=== PATIENT | female | born 1965 | race Caucasian/White ===

== ENCOUNTER 2021-08-11 08:37 | Outpatient (CLI) | payer BC, SELFPAY | END 2021-08-11 08:38 | disposition home or self-care (01) | LOC: CHSOUTPT 08:43 | PROVIDERS: PCP Family Medicine; Visit Provider Specialist | DX: C44.519 Basal cell carcinoma of skin of other part of trunk (principal) | CPT/HCPCS: 88305 ==

== ENCOUNTER 2022-02-09 09:50 | Outpatient (CLI) | payer BC, SELFPAY | END 2022-02-09 09:51 | disposition home or self-care (01) | LOC: CHSOUTPT 09:55 | PROVIDERS: PCP Family Medicine; Visit Provider Specialist | DX: C44.01 Basal cell carcinoma of skin of lip (principal) | CPT/HCPCS: 88305 ==

== ENCOUNTER 2024-09-18 14:19 | Emergency (ER) | payer OTHER, SELFPAY ==
[2024-09-18 14:28] VITALS: BP 132/82; PULSE 85; RESP 16; TEMP 36.7; O2SAT 100
--- NOTE | 2024-09-18 14:33 | ED_ITS ---
HPI - Ear Problem General Chief complaint: Ear Stated complaint: EAR CLOGGED Time Seen by Provider: 09/18/24 15:02 Source: patient, RN notes reviewed and old records reviewed Mode of arrival: ambulatory Limitations: no limitations History of Present Illness HPI Narrative: 58-year-old female presents to the [facility] with right ear clogged for 3 weeks. States that she was on a plane ride when this started. Has tried to pop it. Denies pain Related Data Home Medications ?Medication ?Instructions ?Recorded ?Confirmed ?Last Taken ?Type thyroid (pork) 130 mg tablet 130 mg PO DAILY 11/16/19 11/16/19 Unknown History Allergies Allergy/AdvReac Type Severity Reaction Status Date / Time No Known Allergies Allergy Unverified 09/18/24 14:39 Review of Systems Review of Systems: All systems reviewed & are unremarkable except as noted in HPI and below Constitutional: Constitutional: Reports no additional constitutional complaints ENT: Reports as per HPI and Denies otalgia ( clogged) Cardiovascular: Cardiovascular: Reports no additional cardiovascular complaints, Denies chest pain and Denies dyspnea Respiratory: Respiratory: Reports no additional respiratory complaints, Denies chest congestion, Denies cough and Denies dyspnea Musculoskeletal: Musculoskeletal: Reports no additional musculoskeletal complaints Integumentary/Breasts: Skin/Breast: Reports system reviewed and no additional complaints, except as docu PMFSH Past Medical History Medical History (Updated 09/18/24 @ 17:36 by Leah Artis APRN) Vitamin D deficiency Overactive bladder Hypothyroidism Finger fracture Surgical History Surgical History H/O bladder repair surgery History of appendectomy Family History Family History Father Family history of thyroid disease Family history of cataracts Family history of congestive heart failure Sibling Family history of thyroid disease Mother Acute myocardial infarction Social History Social History Smoking status: Never smoker Alcohol intake: current Alcohol use details: social Substance use: never Substance use type: does not use Living arrangements: with family Additional living arrangements comments: Occupation/Education: occupation 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 There is no relevant family history pertinent to the patient complaint. Exam Const: General: cooperative, healthy appearing, comfortable, no acute distress, well developed, alert and well nourished Nutritional Appearance: well nourished Orientation/consciousness: patient oriented x3 Limitations: no limitations HENMT: Head: normal to inspection Ears: TM abnormal bulging on the right, wth effusion purulent on the right and with loss of landmarks; not erythematous Mouth: Yes Normal oral and palatal mucosa present, Yes lip normal, Yes tongue normal and Yes moist mucous membranes Throat: posterior oropharynx normal, uvula midline and no uvular edema Eyes: General: appearance normal, both eyes and all related structures Alignment and Position: alignment normal Neck: Neck: normal visual inspection, full ROM, no lymphadenopathy and no meningeal signs Chest: Chest palpation & inspection: normal inspection of the chest Resp: Effort & Inspection: normal respiratory effort and able to speak in complete sentences Auscultation: clear to auscultation bilaterally, no crackles, no rales, no rhonchi and no wheezes Cardio: Rate: regular rate Skin: General skin exam: normal color and no rashes or lesions noted Neuro: General: patient oriented x3, gait normal, moves all extremities and no meningeal signs Cognition (Neuro): normal cognition Speech: normal speech Gait exam (Neuro): Normal gait present Extrem: General: normal to inspection, full ROM, capillary refill normal and normal gait Psych: Appearance: grossly normal and well kempt Mental Status: mental status grossly normal Speech and movement: Normal speech and movement present and Clear speech present Affect: normal affect Attitude: cooperative Course Course Level of Care: Express Care Visit Vital Signs Vital signs: Vital Signs Temperature 98.1 F 09/18/24 14:28 Pulse Rate 85 09/18/24 14:28 Respiratory Rate 16 09/18/24 14:28 Blood Pressure 132/82 09/18/24 14:28 Pulse Oximetry 100 09/18/24 14:28 Temperature 98.1 F 09/18/24 14:28 Pulse Rate 85 09/18/24 14:28 Respiratory Rate 16 09/18/24 14:28 Blood Pressure 132/82 09/18/24 14:28 Pulse Oximetry 100 09/18/24 14:28 Reviewed Medical Decision Making MDM Narrative Medical decision making narrative: Patient sitting comfortably in exam room. Nontoxic, vitals stable. Patient in no acute distress Patient presents for clogged ear without pain for 3 weeks. Thick white to yellow noted behind TM. No erythema noted patient appropriate for outpatient treatment with close follow-up. Already has an appointment with ENT established. Discharge instructions reviewed with patient, as well as provided in writing per nursing staff. The instructions also include specific and strict return/GO TO THE ER as well as f/u information. All questions have been answered, and the patient deny any further questions with discharge and discharge plan. Some parts of this dictation were generated by voice recognition software and may contain typographical and/or grammatical inaccuracies. Differential Diagnosis Differential Diagnosis: Otitis media, serous otitis, otitis externa, URI Medical Records Medical records reviewed: Yes I reviewed the external patient's medical records. Vital Signs Vital Signs: Vital Signs Temperature 98.1 F 09/18/24 14:28 Pulse Rate 85 09/18/24 14:28 Respiratory Rate 16 09/18/24 14:28 Blood Pressure 132/82 09/18/24 14:28 Pulse Oximetry 100 09/18/24 14:28 Temperature 98.1 F 09/18/24 14:28 Pulse Rate 85 09/18/24 14:28 Respiratory Rate 16 09/18/24 14:28 Blood Pressure 132/82 09/18/24 14:28 Pulse Oximetry 100 09/18/24 14:28 Reviewed Lab Data Lab results reviewed: Yes I reviewed the patient's lab results. Labs: Reviewed Critical Care Time Critical Care Time Critical Care Time: No Discharge Plan Discharge Clinical Impression: Otitis media Qualifiers: Otitis media type: suppurative Chronicity: acute Laterality: right Recurrence: not specified as recurrent Spontaneous tympanic membrane rupture: without spontaneous rupture Qualified Code(s): H66.001 - Acute suppurative otitis media without spontaneous rupture of ear drum, right ear Patient Disposition: Home, Self-Care Condition: Stable Instructions: Antibiotic Form, Ear Infection (ED) Additional Instructions: Use Flonase daily. take medications as prescribed follow-up with ENT as already scheduled follow-up with primary care provider for new or worsening symptoms go directly to the emergency room Patient Language: Bangladeshi Prescriptions: New amoxicillin 875 mg tablet 875 mg PO Q12H Qty: 20 0RF methylprednisolone [Medrol ([place])] 4 mg tablets,dose pack See Rx Instructions PO .COMPLEX Qty: 21 0RF Rx Instructions: orally per package directions No Action Nature-Throid 130 mg tablet 130 mg PO DAILY loratadine 10 mg capsule 10 mg PO DAILY Qty: 30 0RF fluticasone propionate [Flonase Allergy Relief] 50 mcg/actuation spray,suspension 1 spray NASAL DAILY Qty: 18.2 0RF Rx Instructions: administer into each nostril Follow-up/Referrals: PHYSICIAN,CATTLE BRANDER [Primary Care Provider] - Stand Alone Forms: Work/School Release IP Time of Disposition: 15:12
== END 2024-09-18 15:18 | disposition home or self-care (01) ==
PROVIDERS: Emergency Provider Nurse Practitioner
DX: H66.001 Acute suppurative otitis media without spontaneous rupture of ear drum, right ear (principal); E03.9 Hypothyroidism, unspecified
CPT/HCPCS: 99213; G0463

== ENCOUNTER 2025-07-31 18:11 | Emergency (ER) | payer OTHER, SELFPAY ==
[2025-07-31 18:25] VITALS: BP 142/92; PULSE 75; RESP 16; TEMP 36.4; O2SAT 100
[2025-07-31 18:33] LABS: EDSTREPNEGPOS1 Negative (Negative)
--- NOTE | 2025-07-31 18:49 | ED_ITS ---
HPI - URI/Sore Throat General Chief Complaint: Upper Respiratory Infection Stated Complaint: SORE THROAT Time Seen by Provider: 07/31/25 18:20 Source: patient and RN notes reviewed Mode of arrival: ambulatory Limitations: no limitations History of Present Illness HPI Narrative: 59-year-old female presents Express Care complaining of sore throat started today. Patient reports pain with swallowing. Patient denies any other upper respiratory symptoms, fevers, body aches, chills, nausea vomiting, difficulty breathing, difficulty swallowing, chest pain, shortness of breath, or any other symptoms. Patient says she was recently on a girls trip with her sister who tested positive for strep yesterday if she was exposed to is also coughing and hacking during the trip. Related Data Home Medications ?Medication ?Instructions ?Recorded ?Confirmed ?Last Taken ?Type thyroid (pork) 130 mg tablet 130 mg PO DAILY 11/16/19 11/16/19 Unknown History levothyroxine 125 mcg tablet mcg 07/31/25 Unknown His tory Allergies Allergy/AdvReac Type Severity Reaction Status Date / Time No Known Allergies Allergy Verified 07/31/25 18:33 Review of Systems Review of Systems: CONSTITUTIONAL: Denies fever, chills, or sweats. EYES: Denies visual changes, redness, or discharge. ENT: Denies rhinorrhea, congestion, dysphagia, or otalgia. Positive for sore throat. CARDIOVASCULAR: Denies chest pain, palpitations, or edema. RESPIRATORY: Denies cough or dyspnea. GASTROINTESTINAL: Denies abdominal pain, nausea, vomiting, or diarrhea. GENITOURINARY: Denies dysuria or hematuria. SKIN: Denies rash or itching. MUSCULOSKELETAL: Denies back pain, joint pain, or myalgia. NEUROLOGIC: Denies headache, numbness, or weakness. PSYCHIATRIC: Denies anxiety or depression. All other systems reviewed are negative, except as documented in HPI. [facility] Past Medical History Medical History Vitamin D deficiency Overactive bladder Hypothyroidism Finger fracture Surgical History Surgical History H/O bladder repair surgery History of appendectomy Family History Family History Father Family history of thyroid disease Family history of cataracts Family history of congestive heart failure Sibling Family history of thyroid disease Mother Acute myocardial infarction Social History Social History Smoking status: Never smoker Alcohol intake: current Alcohol use details: social Substance use: never Substance use type: does not use Living arrangements: with family Additional living arrangements comments: Occupation/Education: occupation 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 There is no relevant family history pertinent to the patient complaint. Exam Narrative: GENERAL: This is a well-nourished, well-developed adult, in no apparent distress. They are non ill-appearing, nontoxic appearing. HEAD: normocephalic, atraumatic. EYES: Sclera clear/white. Conjunctiva normal. Vision is grossly intact. Extraocular movements intact EARS: External ears normal, auditory canals clear and without drainage, TMs normal without perforation. Hearing grossly intact. NOSE: External nose normal with no obvious nasal discharge, nasal turbinates without redness, no rhinorrhea. THROAT: Mucous membranes moist, posterior pharynx erythematous red and patchy. Tonsils 2+ erythematous. No exudate. Uvula midline. NECK: Neck supple, mild cervical lymphadenopathy, no masses or thyromegaly. CARDIOVASCULAR: Regular rate and rhythm without murmurs, gallops, or rubs. RESPIRATORY: Clear to auscultation. Breath sounds equal bilaterally. No wheezes, rales, or rhonchi. SKIN: warm, Dry, intact with no suspicious lesions or rash, good texture and turgor. NEURO: awake, alert, and oriented to person, place and time. There were no obvious focal neurologic abnormalities. EXTREMITIES: No joint tenderness, effusion, or edema noted. BACK: Nontender without deformity. No CVA tenderness. Course Course Emergency Course: Portions of this record may have been created with voice recognition software Level of Care: Express Care Visit Vital Signs Vital signs: Vital Signs Temperature 97.6 F 07/31/25 18:25 Pulse Rate 75 07/31/25 18:25 Respiratory Rate 16 07/31/25 18:25 Blood Pressure 142/92 H 07/31/25 18:25 Pulse Oximetry 100 07/31/25 18:25 Temperature 97.6 F 07/31/25 18:25 Pulse Rate 75 07/31/25 18:25 Respiratory Rate 16 07/31/25 18:25 Blood Pressure 142/92 H 07/31/25 18:25 Pulse Oximetry 100 07/31/25 18:25 Reviewed MDM - URI/Sore Throat MDM Narrative Medical decision making narrative: Rapid strep negative. A throat culture is pending. There is clinical suspicion for strep pharyngitis. She has a known exposure. Through shared decision making discussed patient awaiting culture results are go ahead and start presumptive therapy for strep pharyngitis. She would like go and start antibiotics. Prescription amoxicillin sent to pharmacy. Patient also reporting her pain of her sore throat a 10/, will give her 1 time dose of dexamethasone. Discussed physical exam findings. Advised supportive measures and signs/symptoms to go to the ER. Pt is appropriate for outpt treatment and f/u. Differential Diagnosis Differential diagnosis: Likely upper respiratory infection, sinusitis, viral infection and pharyngitis Lab Data Attestation: I reviewed the patient's lab results. Labs: Lab Results 07/31/25 Range/Units 18:31 POC Grp A Strep Screen Negative (Negative) Critical Care Time Critical Care Time Critical Care Time: No Discharge Plan Discharge Clinical Impression: Pharyngitis Qualifiers: Pharyngitis/tonsillitis etiology: unspecified etiology Qualified Code(s): J02.9 - Acute pharyngitis, unspecified Patient Disposition: Home Condition: Stable Instructions: Antibiotic Form, Strep Throat (ED) Additional Instructions: Your rapid strep is negative today. A throat culture is pending if it is positive for strep you will be contacted. Take dexamethasone as directed. Please take the amoxicillin as prescribed until gone. ?You will be contagious for 24 hours after starting the medication. ?After 24 hours on antibiotics throw tooth brush away and start using a new one. Wash your sheets and cup/water bottle that is used daily. Do not share drinks. Take Tylenol or Ibuprofen for pain or fever, if able. ?Rest and stay hydrated. ?Follow up with your PCP in 3 days if symptoms are not improving. ?Go to the ER immediately if you develop worsening symptoms such as shortness of breath, difficulty swallowing. ? Patient Language: Monegasque Prescriptions: New amoxicillin 500 mg tablet 500 mg PO Q12H 10 Days Qty: 20 0RF dexamethasone 2 mg tablet 10 mg PO DAILY 1 Days Qty: 5 0RF No Action levothyroxine 125 mcg tablet Nature-Throid 130 mg tablet 130 mg PO DAILY loratadine 10 mg capsule 10 mg PO DAILY Qty: 30 0RF fluticasone propionate [Flonase Allergy Relief] 50 mcg/actuation spray,s uspension 1 spray NASAL DAILY Qty: 18.2 0RF Rx Instructions: administer into each nostril Follow-up/Referrals: Hardik,Rachelle Paul [Primary Care Provider, Unknown] Time of Disposition: 18:45
== END 2025-07-31 18:50 | disposition home or self-care (01) ==
PROVIDERS: PCP Nurse Practitioner
DX: J02.9 Acute pharyngitis, unspecified (principal); E03.9 Hypothyroidism, unspecified
CPT/HCPCS: 87081; 87880; 99213; G0463